=== PATIENT | male | born 1965 | race African-American/Black ===

== ENCOUNTER 2021-08-12 15:19 | Emergency (ER) | payer MEDICARE, BC, OTHER, MEDICAID ==
[~2021-08-12] VITALS: Ht 167.6 cm; Wt 75.0 kg
[2021-08-12 16:10] VITALS: BP 154/90
--- NOTE | 2021-08-12 16:31 | PHYS DOC ---
Past History Additional Past Medical Histor: muscular dystrophy, bells palsy, alcohol syndrome (CLARK OTOOLE) Past Surgical History: Tonsillectomy (CLARK OTOOLE) Smoking: Non-smoker Alcohol Use: None Drug Use: None (CLARK OTOOLE) General Adult EDM: Chief Complaint: COUGH HPI: HPI: Patient is a 56 year old intellectually disabled male who presents with fatigue, cough and mild confusion. Patient sister is at bedside and provides history. Sister states that the patient shares a home with their mother. Mom is currently admitted to the hospital with COVID-19 pneumonia. Patient has had a cough, nasal congestion and fatigue over the past 5 days. Sister states that the patient is incontinent to urine at baseline, and wears disposable briefs daily. She is concerned that he might have a UTI. Per sister, patient had a 100.2 F fever earlier this week. She states that yesterday, she attempted to get a COVID-19 test performed with the health department, but was unable to due to the health department closing the testing down early. Patient has no other physical complaints and sister has nothing to add. Patient is not vaccinated against COVID-19. (CLARK OTOOLE) Review of Systems: Review of Systems: Constitutional: See HPI Eyes: Denies change in visual acuity, visual field deficits or discharge HENT: Denies ear pain, nasal congestion or sore throat Respiratory: See HPI Cardiovascular: Denies chest pain, palpitations or edema GI: Denies abdominal pain, nausea, vomiting, bloody stools or diarrhea : Denies dysuria or hematuria Musculoskeletal: Denies back pain or joint pain Integument: Denies rash or other skin lesion Neurologic: Denies headache, focal weakness or sensory changes ROS difficult to obtain secondary to patient's baseline cognitive ability. ROS obtained from sister at bedside. (CLARK OTOOLE) Physical Exam: PE: Constitutional: Well developed, well nourished, no acute distress, non-toxic appearance. HENT: Normocephalic, atraumatic, bilateral external ears normal, nose normal. [] Eyes: EOMI, conjunctiva normal, no discharge, bilateral strabismus appreciated. Neck: Normal range of motion, no stridor. Cardiovascular: Heart rate regular rhythm, no murmur. Lungs & Thorax: Dry, coarse breath sounds appreciated mid lung on the right side without wheezing or rhonchi. Abdomen: Bowel sounds normal, soft, no tenderness, no masses, no pulsatile masses. Skin: Warm, dry, no erythema, no rash. Extremities: No tenderness, no cyanosis, no clubbing, ROM intact, no edema. Neurologic: Alert and oriented, no focal deficits noted. (CLARK OTOOLE) Current Patient Data: Vital Signs: Vital Signs Date Time Temp Pulse Resp B/P (MAP) Pulse Ox O2 Delivery O2 Flow Rate FiO2 08/12/21 16:10 98.2 118 20 154/90 (111) 100 Room Air (CLARK OTOOLE) Radiology/Procedures: Radiology/Procedures: System for radiology reads is down. Wet read shows atypical/viral pneumonia. (CLARK OTOOLE) Heart Score: C/O Chest Pain: No (CLARK OTOOLE) Course & Med Decision Making: Course & Med Decision Making Pertinent Labs and Imaging studies reviewed. (See chart for details) Patient is a 56-year-old intellectually and physically disabled male who presents with his sister, who is his caregiver. She states he has had an increased cough over the past 5 days after his mother, whom he lives with was admitted to the hospital for Covid pneumonia. Sister also has some concern for UTI. Discussed Covid and flu testing with patient sister. Using shared decision making, viral swabs will be deferred at this time as it is highly likely that patient is Covid positive after living with his mother for some time with Covid. Urine sample was unable to be obtained, however with findings of atypical pneumonia and suspected UTI, patient will be treated with p.o. Levaquin at home. Sister was provided with supportive care measures, return precautions. She understands and is agreeable to discharge plan. (CLARK OTOOLE) Course & Med Decision Making I was the Attending physician on the above date of service of this patient. This patient was evaluated, examined, treated, and dispositioned from the emergency department by the mid-level practitioner. I reviewed case with midlevel practitioner and agree with plan of care as stated Electronically signed, Viktoria Valles DO (VIKTORIA VALLES DO) Kimberli Disclaimer: Kimberli Disclaimer: This electronic medical record was generated, in whole or in part, using a voice recognition dictation system. (CLARK OTOOLE) Departure Departure: Impression: Primary Impression: Clinical diagnosis of COVID-19 Additional Impression: Suspected urinary tract infection Disposition: 01 HOME / SELF CARE / HOMELESS Condition: STABLE Referrals: DAVID MOORE MD (PCP) Patient Instructions: Urinary Tract Infection, [id number], Viral Syndrome Additional Instructions: Follow the following supportive treatment measures: - Cool mist humidifier with plain water at bedside while you sleep - Mucinex (guaifenesin) per box instructions - Tessalon perles (benzonatate) for cough, especially at night before bed - Alternate ibuprofen and acetaminophen every four hours for body aches/fever/headache - Use the incentive spirometer 5 times per day with 10 deep breaths each time. If antibiotics were prescribed, take them as directed. You have been tested for or diagnosed with COVID-19 infection. It is an infection caused by a new type of coronavirus. COVID-19 will cause cold-like or mild flu symptoms in most. It can cause more severe symptoms like problems breathing in some. There is no treatment for COVID-19. The body will clear the infection over time. Self-care will help to ease discomfort. Steps to Take: - Rest as needed. - Choose healthy foods including fruits and vegetables. Drink water throughout the day. - Get plenty of sleep each night. - If you smoke, try to quit. It may ease breathing. - Avoid alcohol. - Keep Others Healthy - The virus can spread to others. Droplets are released every time you sneeze or cough. The droplets can get into the mouth, nose, or eyes of people near you and lead to infection. To lower the chances of spreading COVID-19 to others: Stay at home until your doctor has said it is safe to leave. If you tested positive this will mean staying isolated until both of the following are true: - At least 10 days have passed since the start of illness. - You are free of fever for at least 72 hours without the use of medicine. During this time: - Avoid public areas, events, or transportation. Do not return to work or school until your doctor has said it is safe to do so. - Call ahead if you need to go to a medical center. Let them know you may have COVID-19. It will help them guide you where to go. They may also ask you to wear a facemask when you come to the office. - If you call for emergency medical services, let them know you may have COVID- 19. While at home: - Try to avoid close contact with others. Stay about 6 feet away. - If possible, spend most of your time in a separate room from others. - Use a face mask if you will be in close contact with others such as sharing a room or vehicle. - Have someone wipe down common surfaces in the home. Use household accounts receivable specialist every day on areas like doorknobs, counters, or sinks. - Cough or sneeze into a tissue. Throw the tissue away right after use. If a tissue is not available, cough or sneeze into your elbow. - Wash your hands often. Wash them after sneezing or coughing. Use soap and water and wash or at least 20 seconds. Alcohol based hand roller cleaner can be used if soap and water is not available. - Do not prepare food for others. Avoid sharing personal items like forks, spoons, or toothbrushes. - Avoid close contact with pets while you are sick. There is no evidence of the virus passing to pets. This is a safety step until more is known about this virus. - Isolation can be frustrating. Social interaction can help. Keep in touch with friends and family through phone and tech options. You can still interact with others in your home, just keep a safe distance of about 6 feet. Follow-up: - Your doctors office will check in with you to see if there are any changes in your health. - You may be asked to keep track of symptoms to share with them. They will also let you know when you are clear to be in public again. Contact your doctor if your recovery is not going as you expect. Get emergency care if you have problems such as: - Trouble breathing with oxygen saturation <90% - Nonstop chest pain or pressure - Changes in awareness, confusion, or problems waking - Lips or face have bluish color - Worsening of symptoms If you think you have an emergency, call for emergency medical services right away. As taken from [facility] [place] [facility] Levofloxacin (LEVOFLOXACIN) 750 Mg Tablet 1 TAB PO DAILY for infection for 5 Days, #5 TAB Prov: CLARK OTOOLE 08/12/21 CLARK OTOOLE Aug 12, 2021 16:31 VIKTORIA VALLES DO Aug 13, 2021 08:12
[2021-08-12] MEDS ORDERED: LEVO750T5 PO (17:36)
--- NOTE | 2021-08-12 20:49 | RAD ---
Study: XR CHEST 1V Indication: Cough and fatigue. Comparison: None. Findings: The patient is rotated to the left. Hazy and linear densities at the left more so than right lower lungs. No layering effusion or pneumot horax. The cardiomediastinal silhouette is within normal limits for size. Unremarkable steve. Impression: Findings at the left more so than right lower lungs which could be on account of an atypical/viral pn eumonia in the appropriate setting. Electronically signed by: VELIA YANEZ MD (08/12/2021 8:47 PM) [facility]
== END 2021-08-12 18:00 | disposition home or self-care (01) ==
LOC: ER 15:19
DX: U07.1 COVID-19 (principal)
CPT/HCPCS: 71045; 99283